=== PATIENT | male | born 1990 ===

== ENCOUNTER 2019-03-04 22:59 | Emergency (ER) | payer MEDICAID, OTHER ==
[2019-03-04 23:08] VITALS: RESP 16
[2019-03-05] MEDS ORDERED: Permethrin 5% CREAM TOP ONE (00:17)
--- NOTE | 2019-03-05 01:58 | ED PDOC ---
HPI: General Adult Time Seen by Provider: 03/05/19 01:23 Chief Complaint (Nursing): Medical Clearance Chief Complaint (Provider): tired History Per: Patient Additional Complaint(s): 28 y/o male brought in by EMS for evaluation. Patient sleeping; upon awakening states he has no complaints and that he just needs to sleep. Patient denies acute medical or psychiatric complaints. Of note, patient found to have body lice on him in triage; was sent to decon shower, Permethrin cream applied Past Medical History Reviewed: Historical Data, Nursing Documentation, Vital Signs Vital Signs: Last Vital Signs Temp 98.0 F 03/04/19 23:02 Pulse 88 03/04/19 23:02 Resp 16 03/04/19 23:02 BP 132/74 03/04/19 23:02 Pulse Ox 98 03/04/19 23:02 - Medical History PMH: Schizophrenia - Surgical History Surgical History: No Surg Hx - Family History Family History: States: No Known Family Hx - Allergies Allergies/Adverse Reactions: Allergies Allergy/AdvReac Type Severity Reaction Status Date / Time No Known Allergies Allergy Verified 03/04/19 23:02 Review of Systems ROS Statement: Except As Marked, All Systems Reviewed And Found Negative Physical Exam - Reviewed Nursing Documentation Reviewed: Yes Vital Signs Reviewed: Yes - Physical Exam Appears: Positive for: Well, Non-toxic, No Acute Distress Head Exam: Positive for: ATRAUMATIC, NORMAL INSPECTION, NORMOCEPHALIC Skin: Positive for: Normal Color Eye Exam: Positive for: Normal appearance ENT: Positive for: Normal ENT Inspection Cardiovascular/Chest: Positive for: Regular Rate, Rhythm Respiratory: Positive for: Normal Breath Sounds Gastrointestinal/Abdominal: Positive for: Normal Exam Back: Positive for: Normal Inspection Extremity: Positive for: Normal ROM Neurological/Psych: Positive for: Awake, Alert, Oriented (x3) - ECG O2 Sat by Pulse Oximetry: 98 - Progress ED Course And Treament: Patient requires no further intervention in the ED and is stable for discharge at this time WAshing precautions given Disposition - Clinical Impression Clinical Impression: Body lice - Patient ED Disposition Is Patient to be Admitted: No Counseled Patient/Family Regarding: Diagnosis, Need For Followup - Disposition Referrals: [facility] [Outside] Disposition: Routine/Home Disposition Time: 01:58 Condition: STABLE Instructions: Lice
[2019-03-05 06:58] VITALS: BP 124/71; PULSE 82; TEMP 98.2; O2SAT 99
== END 2019-03-05 04:20 | disposition home or self-care (01) ==
LOC: H.ER 22:59
DX: B85.1 Pediculosis due to Pediculus humanus corporis (principal); F20.9 Schizophrenia, unspecified

== ENCOUNTER 2019-03-14 19:04 | Emergency (ER) | payer MEDICAID, OTHER ==
[2019-03-14 19:11] VITALS: RESP 18
[2019-03-14 19:13] VITALS: O2SAT 95
[2019-03-14] MEDS ORDERED: Alum-Mag Hydrox-Simethicone Susp (30 mL) PO STA (19:37)
--- NOTE | 2019-03-14 19:40 | ED PDOC ---
HPI: Headache Time Seen by Provider: 03/14/19 19:18 Chief Complaint (Nursing): Headache Chief Complaint (Provider): headache History Per: Patient History/Exam Limitations: no limitations Onset/Duration Of Symptoms: Days (2), Intermittent Episodes Severity: Mild Quality: Aching Additional Complaint(s): pt just dc'd from [facility] homeless with h/o schizophrenia reports headache mild for 2 days also reporting stomach pain denies focal weakness, blurry vision, nausea, vomiting, difficulty with speech or gait denies loss of appetitis, diarrhea or constipation or urinary symptoms Ate food few hours prior to arrival without difficulty and requesting juice Past Medical History Reviewed: Historical Data, Nursing Documentation, Vital Signs Vital Signs: Last Vital Signs Temp 98.9 F 03/14/19 19:12 Pulse 98 H 03/14/19 19:12 Resp 18 03/14/19 19:12 BP 140/75 03/14/19 19:12 Pulse Ox 95 03/14/19 19:12 - Medical History PMH: Asthma, Schizophrenia - Family History Family History: States: Unknown Family Hx - Social History Drugs: Denies - Home Medications Home Medications: Ambulatory Orders Medication Instructions Recorded Acetaminophen [Tylenol Extra 1,000 mg PO Q6 PRN #100 tablet 03/14/19 Strength] Famotidine [Pepcid] 40 mg PO DAILY PRN #30 tab 03/14/19 - Allergies Allergies/Adverse Reactions: Allergies Allergy/AdvReac Type Severity Reaction Status Date / Time No Known Allergies Allergy Verified 03/14/19 19:08 Review of Systems ROS Statement: Except As Marked, All Systems Reviewed And Found Negative (and as per HPI) Constitutional: Negative for: Fever, Chills Eyes: Negative for: Vision Change Gastrointestinal: Negative for: Nausea, Vomiting, Abdominal Pain Neurological: Positive for: Headache. Negative for: Weakness, Numbness, Change in Speech Physical Exam - Reviewed Nursing Documentation Reviewed: Yes Vital Signs Reviewed: Yes - Physical Exam Appears: Positive for: Non-toxic, No Acute Distress Head Exam: Positive for: ATRAUMATIC, NORMOCEPHALIC Skin: Positive for: Warm, Dry, Rash (diffuse scaly rash to neck face upper back, no visible lice) Eye Exam: Positive for: EOMI, PERRL Cardiovascular/Chest: Positive for: Regular Rate, Rhythm. Negative for: Murmur Respiratory: Positive for: Normal Breath Sounds. Negative for: Respiratory Distress Gastrointestinal/Abdominal: Positive for: Soft. 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 Negative for: Motor/Sensory Deficits, Facial Droop - ECG O2 Sat by Pulse Oximetry: 95 Disposition - Clinical Impression Clinical Impression: Headache - Disposition Referrals: [facility] [Outside] Disposition: Routine/Home Disposition Time: 19:43 Condition: STABLE Prescriptions: Acetaminophen [Tylenol Extra Strength] 1,000 mg PO Q6 PRN #100 tablet PRN Reason: FEVER OR PAIN Famotidine [Pepcid] 40 mg PO DAILY PRN #30 tab PRN Reason: reflux Instructions: Headache, Adult (DC)
[2019-03-14] MEDS ORDERED: Alum-Mag Hydrox-Simethicone Susp (30 mL) ONE (19:43)
[2019-03-15 06:43] VITALS: BP 131/70; PULSE 84; TEMP 98.6
== END 2019-03-14 19:40 | disposition home or self-care (01) ==
LOC: H.ER 19:04
DX: R51 Headache (principal); F20.9 Schizophrenia, unspecified; Z59.0 Homelessness

== ENCOUNTER 2019-03-16 16:02 | Emergency (ER) | payer SELFPAY ==
[2019-03-16 16:09] VITALS: BP 143/79; PULSE 100; RESP 16; TEMP 97.7; O2SAT 100
--- NOTE | 2019-03-16 16:43 | ED PDOC ---
HPI: Abdomen <Vin Lea - Last Filed: 03/16/19 17:45> Chief Complaint (Provider): Abdominal pain History Per: Patient, EMS History/Exam Limitations: no limitations Onset/Duration Of Symptoms: Hrs (2x) Current Symptoms Are (Timing): Still Present Severity: Moderate Location Of Pain/Discomfort: Diffuse Associated Symptoms: Nausea. denies: Vomiting Additional Complaint(s): 28 year old homeless male with a past medical history of schizophrenia is brought into the ED by EMS for an evaluation of abdominal pain that started 2x hours prior to arrival. As per EMS, patient was kicked out of halfway prior to being brought to the ED. Patient states that the abdominal pain is constant, a level 1/10, and is associated with nausea. Patient states that he ate 2x hours prior to arrival, and denies that the pain is due to the food. Patient is requesting food in the ED. Patient denies having vomiting, urinary symptoms, a history of abdominal surgeries or similar symptoms in the past. Otherwise: (-) alcohol ingestion, (-) drug use, (-) suicidal ideation, (-) homicidal ideation, (-) auditory or visual hallucinations. PMD: None <David Deleon - Last Filed: 03/16/19 18:36> Time Seen by Provider: 03/16/19 16:10 Chief Complaint (Nursing): Psychiatric Evaluation Past Medical History Vital Signs: Last Vital Signs Temp 97.7 F 03/16/19 16:05 Pulse 100 H 03/16/19 16:05 Resp 16 03/16/19 16:05 BP 143/79 03/16/19 16:05 Pulse Ox 100 03/16/19 16:51 <Vin Lea F - Last Filed: 03/16/19 17:45> Reviewed: Historical Data, Nursing Documentation, Vital Signs Vital Signs: Last Vital Signs Temp 97.7 F 03/16/19 16:05 Pulse 100 H 03/16/19 16:05 Resp 16 03/16/19 16:05 BP 143/79 03/16/19 16:05 Pulse Ox 100 03/16/19 16:05 ABRIL Report Viewed: Yes - Medical History PMH: Asthma, Schizophrenia - Surgical History Surgical History: No Surg Hx - Family History Family History: States: No Known Family Hx - Living Arrangements Living Arrangements: Other (homeless halfway) - Social History Current smoker - smoking cessation education provided: Yes (occasionally) Alcohol: None Drugs: Denies <David Deleon - Last Filed: 03/16/19 18:36> - Home Medications Home Medications: Ambulatory Orders Medication Instructions Recorded No Known Home Med 03/16/19 - Allergies Allergies/Adverse Reactions: Allergies Allergy/AdvReac Type Severity Reaction Status Date / Time No Known Allergies Allergy Verified 03/14/19 19:08 Review of Systems ROS Statement: Except As Marked, All Systems Reviewed And Found Negative Gastrointestinal: Positive for: Nausea, Abdominal Pain. Negative for: Vomiting Genitourinary Male: Negative for: Dysuria, Frequency, Incontinence <David Deleon - Last Filed: 03/16/19 18:36> Physical Exam - Reviewed Nursing Documentation Reviewed: Yes Vital Signs Reviewed: Yes - Physical Exam Comments: GENERAL APPEARANCE: Patient is awake, alert, oriented x 3, in no acute distress. SKIN: Warm, dry; (-) cyanosis HEAD: (-) scalp swelling, (-) scalp tenderness. EYES: (-) conjunctival pallor, (-) scleral icterus, (-) nystagmus. ENMT: Mucous membranes moist. Airway patent: (-) stridor. NECK: (-) tenderness, (-) stiffness, (-) lymphadenopathy. HEART AND CARDIOVASCULAR: (-) irregularity; (-) murmur, (-) gallop. CHEST AND RESPIRATORY: (-) rales, (-) rhonchi, (-) wheezes; breath sounds equal. ABDOMEN: Soft, (-) distention, (-) tenderness, (-) rebound, (-) guarding. NEURO AND PSYCH: Mental status as above. 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 Pupils equal and reactive; EOMI; (-) facial asymmetry; tongue and uvula midline. Strength and DTRs symmetric. <David Deleon - Last Filed: 03/16/19 18:36> - Laboratory Results Result Diagrams: 03/16/19 17:11 03/16/19 17:11 Lab Results: Total Bilirubin 0.4 mg/dl (0.2-1.3) 03/16/19 17:11 AST 31 U/L (17-59) 03/16/19 17:11 ALT 43 U/L (21-72) 03/16/19 17:11 Alkaline Phosphatase 57 U/L (38-126) 03/16/19 17:11 Total Protein 7.2 G/DL (6.3-8.2) 03/16/19 17:11 Albumin 4.1 g/dL (3.5-5.0) 03/16/19 17:11 Globulin 3.1 gm/dL (2.2-3.9) 03/16/19 17:11 Albumin/Globulin Ratio 1.3 (1.0-2.1) 03/16/19 17:11 <Vin Lea - Last Filed: 03/16/19 17:45> - Laboratory Results Result Diagrams: 03/16/19 17:11 03/16/19 17:11 - ECG O2 Sat by Pulse Oximetry: 100 (RA) Pulse Ox Interpretation: Normal <David Deleon - Last Filed: 03/16/19 18:36> Medical Decision Making Medical Decision Makin:10 Initial impression: 28 year old male with abdominal pain. Initial plan: * CMP * drug screen urinary * CBC with differential * urinalysis * reevaluation 18:05 Pt seen by crisis screenerRadha, who spoke to EMS and halfway, pt has been going to multiple hospitals for halfway, no psych needs at this time, diagnosis homeless, pt is cleared by crisis Scribe Attestation: Documented by Patti Avila, acting as a scribe for David Heard PA-C. Provider Scribe Attestation: All medical record entries made by the Scribe were at my direction and personally dictated by me. I have reviewed the chart and agree that the record accurately reflects my personal performance of the history, physical exam, medical decision making, and the department course for this patient. I have also personally directed, reviewed, and agree with the discharge instructions and disposition. <David Deleon - Last Filed: 03/16/19 18:36> Disposition <Vin Lea - Last Filed: 03/16/19 17:45> - Patient ED Disposition Is Patient to be Admitted: No Counseled Patient/Family Regarding: Studies Performed, Diagnosis, Need For Followup - Disposition Disposition: Routine/Home Disposition Time: 18:36 - POA Present On Arrival: None <David Deleon - Last Filed: 03/16/19 18:36> - Clinical Impression Clinical Impression: Abdominal pain, Homeless single person - Disposition Referrals: [facility] [Outside] Condition: STABLE Additional Instructions: Thank you for letting us take care of you today. The emergency medical care you received today was directed at your acute symptoms. If you were prescribed any medication, please fill it and take as directed. It may take several days for your symptoms to resolve. Return to the Emergency Department if your symptoms worsen, do not improve, or if you have any other problems. Please contact your doctor in 2 days for re-evaluation and follow up / or call one of the physicians/clinics you have been referred to that are listed on the Patient Visit Information form that is included in your discharge packet. Bring any paperwork you were given at discharge with you along with any medications you are taking to your follow up visit. Our treatment cannot replace ongoing medical care by a primary care provider (PCP) outside of the emergency department. Instructions: Acute Abdomen (Belly Pain), Adult (DC) Print Language: PERSIAN
[2019-03-16 17:18] LABS: BASO # 0.1 K/uL (0.0-0.2); BASO % 0.8 % (0.0-2.0); EOS # 0.2 K/uL (0.0-0.7); EOS % 3.9 % (0.0-4.0); HEMOGLOBIN 13.4 g/dL (12.0-18.0); LYMPH # 1.6 K/uL (1.0-4.3); MEAN CELL VOLUME 82.9 fl (80.0-94.0); MEAN CORPUSCULAR HEMOGLOBIN 27.8 pg (27.0-31.0); MEAN CORPUSCULAR HGB CONC 33.6 g/dL (33.0-37.0); MEAN PLATELET VOLUME 7.5 fl (7.2-11.7); MONO # 0.7 K/uL (0.0-0.8); MONO % 11.2 % (0.0-10.0); NEUT # 3.7 K/uL (1.8-7.0); NEUT % 58.1 % (50.0-75.0); NRBC % 0.2 % (0.0-0.0); RBC 4.82 Mil/uL (4.40-5.90); RED CELL DISTRIBUTION WIDTH 13.7 % (11.5-14.5); WHITE BLOOD COUNT 6.3 K/uL (4.8-10.8)
[2019-03-16 17:29] LABS: ALB/GLOB RATIO 1.3 (1.0-2.1); ALBUMIN 4.1 g/dL (3.5-5.0); ALT/SGPT 43 U/L (21-72); AST/SGOT 31 U/L (17-59); BLOOD UREA NITROGEN 22 mg/dl (9-20); CALCIUM 8.9 mg/dL (8.4-10.2); GFR NON-AFRICAN AMERICAN > 60
[2019-03-16 18:19] LABS: URINE BACTERIA OCC (<OCC); URINE BILIRUBIN NEGATIVE (NEGATIVE); URINE BLOOD NEGATIVE (NEGATIVE); URINE CLARITY SLIGHTY-CLOUDY (Clear); URINE COLOR YELLOW (YELLOW); URINE GLUCOSE (UA) NEG (NEGATIVE); URINE LEUKOCYTE ESTERASE NEG Leu/uL (Negative); URINE PROTEIN NEGATIVE (NEGATIVE); URINE UROBILINOGEN 0.2-1.0 mg/dL (0.2-1.0)
[2019-03-16 18:32] LABS: BARBITURATES, UR NEGATIVE (NEGATIVE); BENZODIAZEPINES, UR NEGATIVE (NEGATIVE); OPIATES, UR NEGATIVE (NEGATIVE); PHENCYCLIDINE, UR NEGATIVE (NEGATIVE)
== END 2019-03-16 19:00 | disposition home or self-care (01) ==
LOC: H.ER 16:02 → H.ERHOLD 17:45 → UNDOADMIN 17:45 → H.ER 19:00
DX: R10.9 Unspecified abdominal pain (principal); Z59.0 Homelessness; F20.9 Schizophrenia, unspecified
CPT/HCPCS: 80053; 81003; 82948; 85025; 99284; G0480

== ENCOUNTER 2019-03-18 18:40 | Emergency (ER) | payer MEDICAID, OTHER ==
[2019-03-18 18:50] VITALS: RESP 18; O2SAT 100
--- NOTE | 2019-03-18 19:27 | ED PDOC ---
HPI: Psych/Substance Abuse Time Seen by Provider: 03/18/19 18:54 Chief Complaint (Nursing): Psychiatric Evaluation Chief Complaint (Provider): depression Additional Complaint(s): pt was not allowed in homeless senior living due to residency issues, presents to ER reporting depression denies homicidal or suicidal ideation denies hallucinations denies drug or alcohol use. Past Medical History Reviewed: Historical Data, Nursing Documentation, Vital Signs Vital Signs: Last Vital Signs Temp 98.5 F 03/18/19 18:48 Pulse 63 03/18/19 18:48 Resp 18 03/18/19 18:48 BP 139/69 03/18/19 18:48 Pulse Ox 100 03/18/19 18:48 - Medical History PMH: Asthma, Bipolar Disorder, Schizophrenia Denies: Diabetes, Hepatitis, HIV, HTN, Seizures, Sexually Transmitted Disease - Family History Family History: States: Unknown Family Hx - Social History Current smoker - smoking cessation education provided: Yes - Immunization History Hx Tetanus Toxoid Vaccination: No Hx Influenza Vaccination: Yes Hx Pneumococcal Vaccination: No - Home Medications Home Medications: Ambulatory Orders Medication Instructions Recorded No Known Home Med 03/16/19 - Allergies Allergies/Adverse Reactions: Allergies Allergy/AdvReac Type Severity Reaction Status Date / Time No Known Allergies Allergy Verified 03/18/19 18:49 Review of Systems ROS Statement: Except As Marked, All Systems Reviewed And Found Negative (and as per hpi) Psych: Positive for: Depression. Negative for: Psychosis, Suicidal ideation Physical Exam - Reviewed Nursing Documentation Reviewed: Yes Vital Signs Reviewed: Yes - Physical Exam Appears: Positive for: Non-toxic, No Acute Distress Head Exam: Positive for: ATRAUMATIC, NORMOCEPHALIC Skin: Positive for: Warm, Dry Eye Exam: Positive for: EOMI, PERRL Neck: Positive for: Painless ROM, Supple Cardiovascular/Chest: Positive for: Regular Rate, Rhythm. Negative for: Murmur Respiratory: Positive for: Normal Breath Sounds. Negative for: Respiratory Distress Gastrointestinal/Abdominal: Positive for: Soft. Negative for: Tenderness Back: Positive for: Normal Inspection. Negative for: Decreased ROM Neurological/Psych: Positive for: Awake, Alert. Negative for: Motor/Sensory Deficits - ECG O2 Sat by Pulse Oximetry: 100 - Progress ED Course And Treament: Reviewed pt's charts: This is the 6th visit to [facility] ER's in 4 days. Pt evaluated multiple times and currently does not present in acute medical or psychiatric distress. Stable for discharge with clinic followup. Disposition - Clinical Impression Clinical Impression: Malingering Counseled Patient/Family Regarding: Studies Performed - Disposition Disposition: Routine/Home Disposition Time: 19:25 Condition: GOOD Instructions: Adjustment Disorder, Stress
[2019-03-18 20:58] VITALS: BP 128/62; PULSE 58; TEMP 98.2
== END 2019-03-18 20:15 | disposition home or self-care (01) ==
LOC: H.ER 18:40
DX: Z76.5 Malingerer [conscious simulation] (principal); J45.909 Unspecified asthma, uncomplicated; Z86.59 Personal history of other mental and behavioral disorders; F17.200 Nicotine dependence, unspecified, uncomplicated; Z00.8 Encounter for other general examination

== ENCOUNTER 2019-03-25 20:24 | Emergency (ER) | payer MEDICAID ==
[2019-03-25 20:24] VITALS: BMI 24.3
[2019-03-25 21:20] VITALS: BP 143/81; TEMP 97.6
--- NOTE | 2019-03-25 23:50 | ED PDOC ---
HPI: Psych/Substance Abuse Time Seen by Provider: 03/25/19 23:06 Chief Complaint (Nursing): Psychiatric Evaluation Chief Complaint (Provider): Psychiatric evaluation History Per: Patient History/Exam Limitations: no limitations Onset/Duration Of Symptoms: Days (1x) Current Symptoms Are (Timing): Still Present Severity: Moderate Associated Symptoms: Other (auditory hallucinations) Additional Complaint(s): 28 year old male with a past medical history of schizoaffective disorder self presents to the ED for an evaluation of auditory hallucinations. Patient has been seen in the ED in the past for the same complaint, most recently was 2x weeks ago, patient was discharged home. Patient is pleasant in the ED. Patient denies having suicidal or homicidal ideations. PMD: None provided. Past Medical History Reviewed: Historical Data, Nursing Documentation, Vital Signs Vital Signs: Last Vital Signs Temp 97.6 F 03/25/19 21:17 Pulse 80 03/25/19 21:17 Resp 16 03/25/19 21:17 BP 143/81 03/25/19 21:17 Pulse Ox 98 03/25/19 21:17 ABRIL Report Viewed: Yes - Medical History PMH: Asthma, Bipolar Disorder, Schizophrenia Denies: Diabetes, Hepatitis, HIV, HTN, Seizures, Sexually Transmitted Disease - Surgical History Surgical History: No Surg Hx - Family History Family History: States: No Known Family Hx - Social History Current smoker - smoking cessation education provided: Yes (some days) Alcohol: None Drugs: Denies - Immunization History Hx Tetanus Toxoid Vaccination: No Hx Influenza Vaccination: Yes Hx Pneumococcal Vaccination: No - Home Medications Home Medications: Ambulatory Orders Medication Instructions Recorded Zaleplon [Sonata] 10 mg PO HS PRN #14 cap 03/25/19 risperiDONE [RisperDAL Tab] 0.5 mg PO AMHS 14 Days tab 03/25/19 - Allergies Allergies/Adverse Reactions: Allergies Allergy/AdvReac Type Severity Reaction Status Date / Time No Known Allergies Allergy Verified 03/20/19 05:04 Review of Systems ROS Statement: Except As Marked, All Systems Reviewed And Found Negative Psych: Positive for: Other (auditory hallucinations). Negative for: Suicidal ideation ((-) homicidal ideation) Physical Exam - Reviewed Nursing Documentation Reviewed: Yes Vital Signs Reviewed: Yes - Physical Exam Appears: Positive for: Non-toxic, No Acute Distress. Negative for: Well (poor state of hygiene) Head Exam: Positive for: ATRAUMATIC, NORMOCEPHALIC Skin: Positive for: Normal Color, Warm, Dry Eye Exam: Positive for: Normal appearance Cardiovascular/Chest: Positive for: Regular Rate, Rhythm Respiratory: Positive for: Normal Breath Sounds Neurological/Psych: Positive for: Awake, Alert, Oriented (3x), Mood/Affect (pleasant, calm, cooperative) - ECG O2 Sat by Pulse Oximetry: 98 (RA) Pulse Ox Interpretation: Normal Medical Decision Making Medical Decision Makin:06 Initial impression: 28 year old male with auditory hallucinations insetting of known schizoaffective disorder. Initial plan: * crisis evaluation * reevaluation 1:50 Patient evaluated by crisis, patient cleared for discharge home. Counseling was provided and all questions were answered regarding diagnosis and need for follow up with PMD. There is agreement to discharge plan. Return if symptoms persist or worsen. ScribeAttestation: Documented byPatti Avila, acting as a scribe for Frandy Persaud MD. Provider ScribeAttestation: All medical record entries made by the Scribe were at my direction and personally dictated by me. I have reviewed the chart and agree that the record accurately reflects my personal performance of the history, physical exam, medical decision making, and the department course for this patient. I have also personally directed, reviewed, and agree with the discharge instructions and disposition. Disposition - Clinical Impression Clinical Impression: Schizoaffective disorder - Disposition Disposition Time: 01:50 Condition: STABLE Instructions: Schizoaffective Disorder Forms: [employer] (Greenlandic)
[2019-03-26 02:45] VITALS: PULSE 63; RESP 17; O2SAT 99
--- NOTE | 2019-03-26 09:34 | CARD ---
APPROVED REPORT Date of service: 03/26/2019 EKG Measurement Heart [id number] <Conclusion> Sinus bradycardia Otherwise normal ECG
== END 2019-03-26 02:43 | disposition home or self-care (01) ==
LOC: H.ER 20:24
DX: F25.9 Schizoaffective disorder, unspecified (principal); F17.200 Nicotine dependence, unspecified, uncomplicated; J45.909 Unspecified asthma, uncomplicated; Z86.59 Personal history of other mental and behavioral disorders

== ENCOUNTER 2019-04-16 13:11 | Emergency (ER) | payer MEDICAID ==
[2019-04-16 13:12] VITALS: BMI 22.6
[2019-04-16 13:13] VITALS: BP 135/69; PULSE 71; RESP 17; TEMP 98; O2SAT 98
--- NOTE | 2019-04-16 14:06 | ED PDOC ---
HPI: Psych/Substance Abuse Time Seen by Provider: 04/16/19 13:21 Chief Complaint (Nursing): Medical Clearance Chief Complaint (Provider): Med/Psych Clearance History Per: Patient, Other ([place] [employer]) History/Exam Limitations: no limitations Onset/Duration Of Symptoms: Hrs (x2) Current Symptoms Are (Timing): Still Present Additional Complaint(s): 28 year old male with pmhx schizoaffective, bipolar disorder, and htn (not on meds) presents to the ED under [place] [employer] custody to obtain medical and psychiatric clearance for incarceration. Patient admits to smoking K2 appr oximately two hours prior to arrival and now complains of a mild headache and some nausea. Otherwise, denies suicidal ideation, homicidal ideation, fever, chills, and visual hallucinations. Of note, patient has chronic auditory hallucinations which are reported unchanged from baseline. Past Medical History Reviewed: Historical Data, Nursing Documentation, Vital Signs Vital Signs: Last Vital Signs Temp 98 F 04/16/19 13:12 Pulse 71 04/16/19 13:12 Resp 17 04/16/19 13:12 BP 135/69 04/16/19 13:12 Pulse Ox 98 04/16/19 13:12 Primary Care Provider: FAMILY PROVIDER,NO - Medical History PMH: Asthma, Bipolar Disorder, HTN (not on meds), Schizophrenia (schizoaffective) Denies: Diabetes, Hepatitis, HIV, Seizures, Sexually Transmitted Disease - Surgical History Surgical History: No Surg Hx - Family History Family History: States: Unknown Family Hx - Social History Current smoker - smoking cessation education provided: Yes (some days) Alcohol: None Drugs: Other (k2) - Immunization History Hx Tetanus Toxoid Vaccination: No Hx Influenza Vaccination: Yes Hx Pneumococcal Vaccination: No - Home Medications Home Medications: Ambulatory Orders Medication Instructions Recorded Zaleplon [Sonata] 10 mg PO HS PRN #14 cap 03/25/19 risperiDONE [RisperDAL Tab] 0.5 mg PO AMHS 14 Days tab 03/25/19 - Allergies Allergies/Adverse Reactions: Allergies Allergy/AdvReac Type Severity Reaction Status Date / Time No Known Allergies Allergy Verified 04/16/19 13:15 Review of Systems ROS Statement: Except As Marked, All Systems Reviewed And Found Negative Constitutional: Negative for: Fever, Chills Gastrointestinal: Positive for: Nausea Neurological: Positive for: Headache (mild) Psych: Positive for: Other (chronic auditory hallucinations unchanged from baseline; no visual hallucinations). Negative for: Suicidal ideation (or homicidal ideation) Physical Exam - Reviewed Nursing Documentation Reviewed: Yes Vital Signs Reviewed: Yes - Physical Exam Appears: Positive for: Well, No Acute Distress Head Exam: Positive for: ATRAUMATIC, NORMOCEPHALIC Eye Exam: Positive for: EOMI, PERRL, Other (pupils dilated bilaterally) Neck: Positive for: Normal, Painless ROM, Supple Cardiovascular/Chest: Positive for: Regular Rate, Rhythm Respiratory: Positive for: Normal Breath Sounds. Negative for: Respiratory Distress Gastrointestinal/Abdominal: Positive for: Normal Exam, Soft. 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 Wang. Patient is medically and psychiatrically cleared / stable for incarceration. Scribe Attestation: Documented by Rosalind Kaiser, acting as a scribe for Princess Lafleur PA-C. Provider Scribe Attestation: All medical record entries made by the Scribe were at my direction and personally dictated by me. I have reviewed the chart and agree that the record accurately reflects my personal performance of the history, physical exam, medical decision making, and the department course for this patient. I have also personally directed, reviewed, and agree with the discharge instructions and disposition. Disposition - Clinical Impression Clinical Impression: Substance abuse - Patient ED Disposition Is Patient to be Admitted: No Discussed With : Alicia Wang - Disposition Disposition: Discharged/Transfer to Law Enforcement Disposition Time: 14:33 Condition: STABLE Additional Instructions: You are medically and psychiatrically stable for incarceration. Instructions: Drug Abuse and Drug Addiction (DC) Forms: [employer] (Portuguese) Print Language: TUVALU[place]
== END 2019-04-16 14:58 ==
LOC: H.ER 13:11
DX: F19.10 Other psychoactive substance abuse, uncomplicated (principal); Z86.59 Personal history of other mental and behavioral disorders; Z00.8 Encounter for other general examination; F17.200 Nicotine dependence, unspecified, uncomplicated; I10 Essential (primary) hypertension; J45.909 Unspecified asthma, uncomplicated